=== PATIENT | female | born 1950 | race Caucasian/White ===

== ENCOUNTER 2018-01-04 05:54 | Day surgery (SDC) | payer MEDICARE ==
[2018-01-03 10:40] LABS: BASOPHILS % (AUTO) 0.6 % (0-1); EOSINOPHILS # (AUTO) 0.2 X10'3 (0-0.9); EOSINOPHILS % (AUTO) 2.8 % (0-6); LYMPHOCYTES # (AUTO) 1.4 X10'3 (1.1-4.8); LYMPHOCYTES % (AUTO) 19.5 % (21-51); MEAN CORPUSCULAR HEMOGLOBIN 30.6 PG (27.0-31.0); MEAN CORPUSCULAR HGB CONC 34.1 % (33.0-36.5); MEAN CORPUSCULAR VOLUME 89.8 FL (78-98); MEAN PLATELET VOLUME 8.3 FL (7.4-10.4); MONOCYTES # (AUTO) 0.9 X10'3 (0-0.9); MONOCYTES % (AUTO) 11.6 % (2-12); NEUTROPHILS # (AUTO) 4.8 X10'3 (1.8-7.7); NEUTROPHILS % (AUTO) 65.5 % (42-75); PRE OP HEMATOCRIT 37.8 % (35.0-45.0); PRE OP HEMOGLOBIN 12.9 g/dL (12.0-16.0); PRE OP PLATELET COUNT 284 X10'3 (140-440); RED BLOOD COUNT 4.21 X10'6 (4.20-5.60)
[2018-01-03 10:49] LABS: PRE OP PARTIAL THROMB. TIME 27 SECONDS (22-35); PROTHROMBIN TIME 10.5 SECONDS (9.0-12.0)
[2018-01-03 10:50] LABS: CLARITY,URINE SLIGHTLY CLOUDY (Clear); COLOR,URINE YELLOW (Yellow); GLUCOSE, URINE NEGATIVE (Neg); KETONES,URINE NEGATIVE (Neg); LEUKOCYTE ESTERASE ,URINE NEGATIVE (Neg); NITRITES, URINE NEGATIVE (Neg); OCCULT BLOOD,URINE NEGATIVE (Neg); PH,URINE 5.5 (4.8-8.0); PROTEIN,URINE NEGATIVE (Neg)
[2018-01-03 10:55] LABS: UA COLLECTION TYPE CLN CATCH MIDSTREAM
[2018-01-03 10:56] LABS: BACTERIA,URINE 2+ /HPF (Neg); HYALINE CASTS 0-3 /LPF (NEGATIVE); RBC,URINE NONE SEEN /HPF (0-2); SQUAMOUS EPITHELIAL CELL,UR MANY /LPF (FEW); WBC,URINE 0-4 /HPF (0-4)
[2018-01-03 11:03] LABS: ALBUMIN 3.3 G/DL (3.4-5.0); ALBUMIN/GLOBULIN RATIO 0.8 (1.1-1.5); ALKALINE PHOSPHATASE 127 IU/L (46-116); BLOOD UREA NITROGEN 18 MG/DL (7-18); BUN/CREATININE RATIO 16.5 (6.6-38.0); CALCIUM 9.3 MG/DL (8.5-10.1); CHLORIDE 107 MMOL/L (99-107); CREATININE 1.09 MG/DL (0.40-0.90); PRE OP ALT 15 U/L (30-65); PRE OP ANION GAP 7 (8-16); PRE OP AST 15 U/L (10-37); PRE OP BILIRUB, TOTAL 0.4 MG/DL (0.0-1.0); PRE OP GLUCOSE 45 MG/DL (70-104); PRE OP POTASSIUM 3.9 MMOL/L (3.4-5.1); PRE OP SODIUM 143 MMOL/L (135-145); TOTAL CARBON DIOXIDE 29.4 MMOL/L (24-32); TOTAL PROTEIN 7.6 G/DL (6.4-8.2); eGFR 50 ML/MIN
[~2018-01-04] VITALS: Ht 175.3 cm; Wt 128.4 kg
[~2018-01-04 05:54] MED LIST: AMLO5TAB16 PO; ASPI81TA30 PO; BUPR300T86 PO; CARV-49 PO; LEVO200T8 PO; LOSA1TAB41 PO; MULT-1085 PO; SITA1TAB2 PO; clindamycin-Cleocin 900mg/D5W 50 ML IV ONE; famotidine 20mg tablet PO ONE; ringers solution, lacted 1,000 ML IV SCH; scopolamine 1.5mg patch.TD72 TD ONE
[2018-01-04 06:15] VITALS: BP 123/76
[2018-01-04] MEDS ORDERED: iohexol 300 MG/1 ML 50ml polymer ONE (06:55)
[2018-01-04] MEDS ORDERED: LIDOcaine 1% 30ml preserv. free vial ONE (06:55)
[2018-01-04] MEDS ORDERED: heparin sodium, porcine/PF 100unit/ml 5ML syringe ONE ×3 (06:56→09:33)
[2018-01-04] MEDS ORDERED: fentaNYL/PF 50MCG/1 ML 2ML syringe ONE (08:27)
[2018-01-04] MEDS ORDERED: propofol inj 20 ML IV ONE (08:28)
[2018-01-04] MEDS ORDERED: midazolam 2 mg/2 ml injection ONE (08:28)
[2018-01-04] MEDS ORDERED: ePHEDrine 50MG/ML INJ. ONE (08:45)
[2018-01-04] MEDS ORDERED: glycopyrrolate 0.2mg/ml inj ONE (09:20)
[2018-01-04] MEDS ORDERED: heparin sodium, porcine/PF 100unit/ml 5ML syringe IV ONE (09:40)
[2018-01-04 09:50] VITALS: BP 115/67
[2018-01-04] MEDS ORDERED: proCHLORperazine 10 MG/2 ml inj IV PRN (09:50)
[2018-01-04] MEDS ORDERED: morphine 4 MG/ML inj SYRINge IV PRN ×2 (09:50)
[2018-01-04] MEDS ORDERED: ringers solution, lacted 1,000 ML IV SCH (09:50)
[2018-01-04] MEDS ORDERED: meperidine/PF 25mg/ml syringe IV PRN ×3 (09:50)
[2018-01-04] MEDS ORDERED: ondansetron/PF 4mg/2ml inj IV PRN (09:50)
[2018-01-04 10:00] VITALS: BP 92/62
[2018-01-04 10:10] VITALS: BP 100/44
[2018-01-04 10:20] VITALS: BP 104/50
== END 2018-01-04 10:30 | disposition home or self-care (01) ==
LOC: PAS 05:54
PROVIDERS: ATTEND Surgery
DX: T82.594A Other mechanical complication of infusion catheter, initial encounter (principal); I10 Essential (primary) hypertension; E11.9 Type 2 diabetes mellitus without complications; E66.9 Obesity, unspecified; M19.90 Unspecified osteoarthritis, unspecified site; E03.9 Hypothyroidism, unspecified; F41.9 Anxiety disorder, unspecified; Z88.1 Allergy status to other antibiotic agents; Z88.0 Allergy status to penicillin; Z79.82 Long term (current) use of aspirin; Z68.41 Body mass index [BMI] 40.0-44.9, adult; Z79.01 Long term (current) use of anticoagulants; Z90.710 Acquired absence of both cervix and uterus; Z90.49 Acquired absence of other specified parts of digestive tract; Z98.84 Bariatric surgery status; Z87.891 Personal history of nicotine dependence; Z98.890 Other specified postprocedural states; Z79.899 Other long term (current) drug therapy; Y83.8 Other surgical procedures as the cause of abnormal reaction of the patient, or of later complication, without mention of misadventure at the time of the procedure; Y92.89 Other specified places as the place of occurrence of the external cause
CPT/HCPCS: 36415; 36561; 71045; 76001; 77001; 80053; 81001; 82948; 83036; 84443; 85025; 85610; 85730; 93005; A6251; A6449; C1788; J1642; J2250; J2704; J3010; J3490; J7030; J7120; A6250; A7000; Q9967

== ENCOUNTER 2018-06-20 18:25 | Emergency (ER) | payer MEDICARE ==
[~2018-06-20] VITALS: Ht 175.3 cm; Wt 136.3 kg
[~2018-06-20 18:25] MED LIST changes: -clindamycin-Cleocin 900mg/D5W 50 ML IV ONE; -famotidine 20mg tablet PO ONE; -ringers solution, lacted 1,000 ML IV SCH; -scopolamine 1.5mg patch.TD72 TD ONE
[2018-06-20 19:20] LABS: BASOPHILS % (AUTO) 0.2 % (0-1); EOSINOPHILS # (AUTO) 0.3 X10'3 (0-0.9); EOSINOPHILS % (AUTO) 2.2 % (0-6); HEMATOCRIT 39.2 % (35.0-45.0); HEMOGLOBIN 12.9 g/dl (12.0-16.0); LYMPHOCYTES # (AUTO) 1.2 X10'3 (1.1-4.8); LYMPHOCYTES % (AUTO) 9.4 % (21-51); MEAN CORPUSCULAR HEMOGLOBIN 29.5 PG (27.0-31.0); MEAN CORPUSCULAR VOLUME 89.4 FL (78-98); MEAN PLATELET VOLUME 8.4 FL (7.4-10.4); MONOCYTES # (AUTO) 0.9 X10'3 (0-0.9); NEUTROPHILS % (AUTO) 81.2 % (42-75); PLATELET COUNT 286 X10'3 (140-440); RED BLOOD COUNT 4.38 X10'6 (4.20-5.60); RED CELL DISTRIBUTION WIDTH 14.7 % (11.5-14.5); WHITE BLOOD COUNT 12.3 X10'3 (4.5-11.0)
[2018-06-20 19:20] LABS: COLOR,URINE YELLOW (Yellow); GLUCOSE, URINE NEGATIVE (Neg); KETONES,URINE NEGATIVE (Neg); LEUKOCYTE ESTERASE ,URINE MODERATE (Neg); NITRITES, URINE POSITIVE (Neg); OCCULT BLOOD,URINE TRACE-INTACT (Neg); PROTEIN,URINE 30 mg/dl (Neg)
[2018-06-20 19:30] LABS: UA COLLECTION TYPE CLN CATCH MIDSTREAM
[2018-06-20 19:31] LABS: CLARITY,URINE SLIGHTLY CLOUDY (Clear)
[2018-06-20 19:32] LABS: BACTERIA,URINE 4+ /HPF (Neg); RBC,URINE 0-2 /HPF (0-2); SQUAMOUS EPITHELIAL CELL,UR FEW /LPF (FEW); WBC,URINE 20-30 /HPF (0-4)
[2018-06-20 19:33] LABS: ALANINE AMINOTRANSFERASE 20 U/L (12-78); ALBUMIN 3.8 G/DL (3.4-5.0); ALBUMIN/GLOBULIN RATIO 0.8 (1.1-1.5); ALKALINE PHOSPHATASE 150 IU/L (46-116); ANION GAP 11 (8-16); ASPARTATE AMINO TRANSFERASE 18 U/L (10-37); BILIRUBIN,TOTAL 0.4 MG/DL (0.1-1.0); BLOOD UREA NITROGEN 21 MG/DL (7-18); BUN/CREATININE RATIO 19.8 (6.6-38.0); CALCIUM 9.5 MG/DL (8.5-10.1); CHLORIDE 103 MMOL/L (99-107); CREATININE 1.06 MG/DL (0.40-0.90); GLUCOSE 98 MG/DL (70-104); SODIUM 140 MMOL/L (135-145); TOTAL PROTEIN 8.3 G/DL (6.4-8.2); eGFR 52 ML/MIN
[2018-06-20 19:36] LABS: INR 1.1 INR; PARTIAL THROMBOPLASTIN TIME 28 SECONDS (22-32); PROTHROMBIN TIME 10.9 SECONDS (9.0-12.0)
[2018-06-20] MEDS ORDERED: CIPR-230 PO (19:48)
[2018-06-20 19:59] VITALS: BP 142/72
== END 2018-06-20 20:01 | disposition home or self-care (01) ==
LOC: ER 18:25
DX: N39.0 Urinary tract infection, site not specified (principal); R41.82 Altered mental status, unspecified; E11.9 Type 2 diabetes mellitus without complications; Z88.3 Allergy status to other anti-infective agents; Z79.899 Other long term (current) drug therapy; Z79.82 Long term (current) use of aspirin
CPT/HCPCS: 36415; 71045; 80053; 81001; 82948; 85025; 85610; 85730; 87077; 87088; 87186; 93005; 99284

== ENCOUNTER 2020-11-27 12:25 | Day surgery (SDC) | payer MEDICARE ==
[~2020-11-27] VITALS: Ht 175.3 cm; Wt 130.0 kg
[2020-11-27] MEDS ORDERED: normal saline 1000ml 1,000 ML IV PRN (12:50)
[2020-11-27] MEDS ORDERED: IBUP-1986 PO (13:41)
[2020-11-27] MEDS ORDERED: MONT10TA32 PO (13:41)
[2020-11-27] MEDS ORDERED: GABA300C PO (13:41)
[2020-11-27] MEDS ORDERED: CYAN100082 PO (13:41)
[2020-11-27] MEDS ORDERED: SITA1TBM7 PO (13:41)
[2020-11-27] MEDS ORDERED: TIZA4TAB11 PO (13:41)
[2020-11-27] MEDS ORDERED: DICL100G15 TOP (13:41)
[2020-11-27] MEDS ORDERED: CHOL20004 PO (13:41)
[2020-11-27] MEDS ORDERED: TRAZ-256 PO (13:41)
[2020-11-27] MEDS ORDERED: BACL10TA2 (13:41)
[2020-11-27 14:33] LABS: BASOPHILS # (AUTO) 0.1 X10'3 (0-0.2); BASOPHILS % (AUTO) 0.5 % (0-1); EOSINOPHILS # (AUTO) 0.1 X10'3 (0-0.9); EOSINOPHILS % (AUTO) 0.8 % (0-6); HEMATOCRIT 41.1 % (35.0-45.0); HEMOGLOBIN 13.8 g/dl (12.0-16.0); LYMPHOCYTES # (AUTO) 1.4 X10'3 (1.1-4.8); MEAN CORPUSCULAR HEMOGLOBIN 30.2 PG (27.0-31.0); MEAN CORPUSCULAR HGB CONC 33.7 g/dL (33.0-36.5); MEAN CORPUSCULAR VOLUME 89.8 FL (78-98); MEAN PLATELET VOLUME 7.9 FL (7.4-10.4); MONOCYTES % (AUTO) 8.6 % (2-12); NEUTROPHILS # (AUTO) 9.2 X10'3 (1.8-7.7); NEUTROPHILS % (AUTO) 78.1 % (42-75); PLATELET COUNT 299 X10'3 (140-440); RED BLOOD COUNT 4.57 X10'6 (4.20-5.60); RED CELL DISTRIBUTION WIDTH 14.3 % (11.5-14.5); WHITE BLOOD COUNT 11.7 X10'3 (4.5-11.0)
[2020-11-27 14:39] LABS: ALBUMIN 4.3 G/DL (3.4-5.0); ANION GAP 10 (8-16); BLOOD UREA NITROGEN 16 MG/DL (7-18); BUN/CREATININE RATIO 15.5 (6.6-38.0); CALCIUM 10.3 MG/DL (8.5-10.1); CHLORIDE 102 MMOL/L (99-107); CREATININE 1.03 MG/DL (0.40-0.90); GLUCOSE 94 MG/DL (70-104); POTASSIUM 3.8 MMOL/L (3.5-5.1); SODIUM 142 MMOL/L (135-145); TOTAL CARBON DIOXIDE 30.4 MMOL/L (24-32); eGFR 53 ML/MIN
[2020-11-27 14:44] LABS: PARTIAL THROMBOPLASTIN TIME 28 SECONDS (22-32)
[2020-11-27 16:40] VITALS: BP 157/69
[2020-11-27] MEDS ORDERED: LIDOcaine 1%/PF 5ML 10 MG/ML VIAL ONE (17:05)
[2020-11-27] MEDS ORDERED: midazolam 1 mg/ML 2ml injection ONE ×2 (17:05→17:51)
[2020-11-27] MEDS ORDERED: heparin sodium, porcine/PF 100unit/ml 5ML syringe ONE (17:05)
[2020-11-27] MEDS ORDERED: fentaNYL/PF 50MCG/1 ML 2ML syringe ONE ×2 (17:05→17:51)
[2020-11-27] MEDS ORDERED: ceFAZolin/D5W- 1GM premix 50 ML IV ONE (17:30)
[2020-11-27] MEDS ORDERED: ondansetron/PF 4mg/2ml inj ONE (17:42)
[2020-11-27] MEDS ORDERED: iohexol 300 MG/1 ML 50ml polymer ONE (18:07)
[2020-11-27] MEDS ORDERED: cefazolin/dext.iso 2gm/100ml 100 ML IV ONE (18:10)
[2020-11-27 18:58] VITALS: BP 145/57
[2020-11-27 19:15] VITALS: BP 137/50
== END 2020-11-27 19:30 | disposition home or self-care (01) ==
LOC: SSTAY O 12:25
PROVIDERS: ATTEND Radiology Vascular & Interventional Radiology
DX: D50.9 Iron deficiency anemia, unspecified (principal); Z98.84 Bariatric surgery status; Z79.01 Long term (current) use of anticoagulants; Z79.899 Other long term (current) drug therapy
CPT/HCPCS: 36415; 36576; 76937; 77001; 80048; 82948; 85025; 85610; 85730; C1769; C1788; C1894; J1642; J2250; J2405; J3010; Q9967; 99152; 99153